=== PATIENT | female | born 1970 | race Caucasian/White ===

== ENCOUNTER 2018-03-29 18:23 | Emergency (ER) | payer MEDICAID ==
[~2018-03-29] VITALS: Ht 172.7 cm; Wt 96.2 kg
[2018-03-29 18:28] VITALS: BP 140/83
[2018-03-29 19:14] LABS: APPEARANCE,URINE HAZY (CLEAR); BASOPHILS # (AUTO) 0.1 K/uL (0.00-0.22); BASOPHILS % (AUTO) 0.5 % (0.0-2.0); BILIRUBIN,URINE NEGATIVE (NEGATIVE); BLOOD, URINE 2+ (NEGATIVE); COLOR,URINE YELLOW (YELLOW); EOSINOPHILS # (AUTO) 0.1 K/uL (0-0.4); EOSINOPHILS % (AUTO) 0.5 % (0.0-4.0); HEMATOCRIT 39.3 % (36-48); HEMOGLOBIN 12.5 g/dL (12.0-16.0); LEUKOCYTE ESTERASE ,URINE NEGATIVE (NEGATIVE); LYMPHOCYTES # (AUTO) 0.9 K/uL (2.5-16.5); LYMPHOCYTES % (AUTO) 7.7 % (20.5-51.1); MEAN CORPUSCULAR HEMOGLOBIN 27 pg (27-31); MEAN CORPUSCULAR HGB CONC 32 g/dL (33-37); MEAN CORPUSCULAR VOLUME 83.2 fL (80-94); MONOCYTES # (AUTO) 0.3 K/uL (0.8-1.0); MONOCYTES % (AUTO) 2.9 % (1.7-9.3); NEUTROPHILS # (AUTO) 10.3 K/uL (1.8-7.7); NEUTROPHILS % (AUTO) 88.4 % (42.2-75.2); NITRITE, URINE NEGATIVE (NEGATIVE); PLATELET COUNT (AUTO) 335 K/uL (140-450); RED BLOOD CELL COUNT(AUTO) 4.73 MIL/uL (4.20-5.40); RED CELL DISTRIBUTION WIDTH 15.7 % (11.6-13.7); UGLUCOSE NEGATIVE (NEGATIVE); WHITE BLOOD COUNT (AUTO) 11.7 K/uL (4.8-10.8)
--- NOTE | 2018-03-29 19:16 | NUR ---
PT TO ER BED 8
[2018-03-29 19:29] LABS: RBC,URINE 3-10 (FEW) /HPF (0-5)
[2018-03-29 19:30] LABS: ALBUMIN 3.3 g/dL (3.4-5.0); ANION GAP 9.1 (8-16); CREATININE 0.6 mg/dL (0.6-1.3); POTASSIUM 4.1 mmol/L (3.5-5.1); TOTAL BILIRUBIN 0.4 mg/dL (0.0-1.0)
--- NOTE | 2018-03-29 19:30 | NUR ---
PT BIB [facility] MEMBER FOR N/V/D AND DIZZYNESS X1 DAY. PT REPORTS WHITE VOMITING AFTER EATING, AND NOT BEING ABLE TO KEEP ANYTHING DOWN. PT REPORTS MILD ABD PAIN THAT OCCURS WITH VOMITING. PT ABD IS SOFT, NON-TENDER, WITH BOWEL SOUNDS ACTIVE X4 QUADRANTS. ER MD TO SEE PT. SIDE RAIL UP X1, HEAD OF BED ELEVATED, BED IN LOWEST POSITION, WILL CONTINUE TO MONITOR. MEDHX: HTN RX: NONE
--- NOTE | 2018-03-29 20:02 | NUR ---
PT RETURN FROM CT
--- NOTE | 2018-03-29 21:11 | NUR ---
PT RESTING IN BED, FAMILY MEMBER AT BEDSIDE. PT DENIES ABD PAIN OR DIZZYNESS AT THIS TIME. SIDE RAIL UP X1, HOB ELEVATED, BED IN LOWEST POSITION. WILL CONTINUE TO MONITOR.
--- NOTE | 2018-03-29 21:47 | NUR ---
PT COMPLAINING OF HEADACHE AT 9/10. PT REPORTS PRESSURE PAIN STARTING AT THE BACK OF HER HEAD AND RADIATES FOREWARD. PT SPEECH CLEAR, FACIAL SYMMETRY INTACT, VSS. SAFETY PRECAUTIONS IN PLACE. ER MD NOTIFIED.
--- NOTE | 2018-03-29 21:51 | NUR ---
Dr. Marquez evaluating patient at bedside.
[2018-03-29] MEDS ORDERED: NACL 0.9% 1,000 ML IV ONE (21:55)
[2018-03-29] MEDS ORDERED: KETOROLAC 30 MG/ML VIAL IVP ONE (21:55)
[2018-03-29] MEDS ORDERED: cefTRIAXone 1,000 MG VIAL ONE (22:12)
[2018-03-30 00:12] VITALS: BP 124/64
--- NOTE | 2018-03-30 00:12 | NUR ---
Patient discharged by Dr Marquez with v/s stable. Written and verbal after care instructions given and explained. Patient alert, oriented and verbalized understanding of instructions. Ambulatory with steady gait. All questions addressed prior to discharge. ID band removed. Patient advised to follow up with PMD. Rx of ciproflaxacin given. Patient educated on indication of medication including possible reaction and side effects. Opportunity to ask questions provided and answered.
== END 2018-03-30 00:12 | disposition home or self-care (01) ==
LOC: MED 18:23
DX: A09 Infectious gastroenteritis and colitis, unspecified (principal); N39.0 Urinary tract infection, site not specified; I10 Essential (primary) hypertension
CPT/HCPCS: 36415; 74176; 80053; 81001; 81025; 83690; 85025; 87086; 96365; 96375; 99284; J0696; J1885; J7030; J7060; 96361

== ENCOUNTER 2018-04-13 14:05 | Emergency (ER) | payer MEDICAID ==
[~2018-04-13] VITALS: Ht 172.7 cm; Wt 96.2 kg
[2018-04-13 14:11] VITALS: BP 154/75
--- NOTE | 2018-04-13 14:23 | NUR ---
BIB WITH C/O LOWER RIGHT AB PAIN X THIS MORNING, -N/V/D, - URINE PAIN, - BLEEDING, LMB TODAY. NO OTHER SYMPTOMS REPORTED AT THIS TIME.
--- NOTE | 2018-04-13 14:55 | NUR ---
PATIENT TAKEN TO US IN WHEELCHAIR
[2018-04-13 15:08] LABS: APPEARANCE,URINE CLEAR (CLEAR); BILIRUBIN,URINE NEGATIVE (NEGATIVE); BLOOD, URINE 2+ (NEGATIVE); COLOR,URINE YELLOW (YELLOW); LEUKOCYTE ESTERASE ,URINE NEGATIVE (NEGATIVE); NITRITE, URINE NEGATIVE (NEGATIVE); UGLUCOSE NEGATIVE (NEGATIVE)
[2018-04-13 15:36] LABS: RBC,URINE 0-5 (RARE) /HPF (0-5); WBC,URINE 0-5 (RARE) /HPF (0-5)
--- NOTE | 2018-04-13 16:05 | NUR ---
PATIENT REQUESTING PAIN MEDICATION. DR LARRY INFORMED.
[2018-04-13] MEDS ORDERED: HYDROcodone/APAP 5/325 MG 1 TAB TAB PO ONE (17:00)
[2018-04-13 17:21] VITALS: BP 154/75
--- NOTE | 2018-04-13 17:21 | NUR ---
Patient discharged with v/s stable. Written and verbal after care instructions given and explained. Patient alert, oriented and verbalized understanding of instructions. Ambulatory with to car. All questions addressed prior to discharge. ID band removed. Patient advised to follow up with PMD. Rx of DOXYCYCLINE, NORCO, KEFLEX given. Patient educated on indication of medication including possible reaction and side effects. Opportunity to ask questions provided and answered.
== END 2018-04-13 17:21 | disposition home or self-care (01) ==
LOC: MED 14:05
DX: N83.201 Unspecified ovarian cyst, right side (principal); E11.9 Type 2 diabetes mellitus without complications; I10 Essential (primary) hypertension
CPT/HCPCS: 76856; 81001; 81025; 99284; Q0092

== ENCOUNTER 2019-09-29 15:02 | Emergency (ER) | payer SELFPAY ==
[~2019-09-29] VITALS: Ht 172.7 cm; Wt 103.0 kg
[2019-09-29 15:09] VITALS: BP 154/44
--- NOTE | 2019-09-29 15:12 | NUR ---
C/O LEFT ANTERIOR LEG PAIN/INFLAMMATION FOR APPROX 32 HOURS. ALSO PAIN TRAVELLING UP WITH A "BALL"/LUMP IN LEFT INGUINAL AREA. VERTICAL AREA OF REDNESS, WARMTH TO LEFT UPPER ANTERIOR LEG. DENIES INJURY. DENIES CP, SOB. VSS HX---DENIES RX--NONE
--- NOTE | 2019-09-29 15:18 | NUR ---
FABIAN LEACH EVALUATING PT AT BEDSIDE
[2019-09-29] MEDS ORDERED: cefTRIAXone 1,000 MG in LIDOCAINE MPF 1% 2.1 ML IM ONE (15:25)
[2019-09-29] MEDS ORDERED: KETOROLAC 30 MG/ML VIAL IM ONE (15:25)
[2019-09-29] MEDS ORDERED: LIDOCAINE MPF 1% 5 ML ONE (15:40)
[2019-09-29] MEDS ORDERED: cefTRIAXone 1,000 MG VIAL ONE (15:40)
--- NOTE | 2019-09-29 15:54 | NUR ---
U/S TECH AT BEDSIDE
[2019-09-29 16:12] LABS: BASOPHILS # (AUTO) 0.1 K/uL (0.00-0.22); BASOPHILS % (AUTO) 0.6 % (0.0-2.0); EOSINOPHILS # (AUTO) 0.1 K/uL (0-0.4); EOSINOPHILS % (AUTO) 1.2 % (0.0-4.0); HEMATOCRIT 35.9 % (36-48); HEMOGLOBIN 11.5 g/dL (12.0-16.0); LYMPHOCYTES # (AUTO) 2.7 K/uL (2.5-16.5); LYMPHOCYTES % (AUTO) 29.8 % (20.5-51.1); MEAN CORPUSCULAR HEMOGLOBIN 27 pg (27-31); MEAN CORPUSCULAR HGB CONC 32 g/dL (33-37); MEAN CORPUSCULAR VOLUME 83.4 fL (80-94); MONOCYTES # (AUTO) 0.6 K/uL (0.8-1.0); NEUTROPHILS # (AUTO) 5.6 K/uL (1.8-7.7); NEUTROPHILS % (AUTO) 61.4 % (42.2-75.2); PLATELET COUNT (AUTO) 299 K/uL (140-450); RED BLOOD CELL COUNT(AUTO) 4.31 MIL/uL (4.20-5.40); RED CELL DISTRIBUTION WIDTH 16.2 % (11.6-13.7); WHITE BLOOD COUNT (AUTO) 9.1 K/uL (4.8-10.8)
[2019-09-29 16:26] LABS: ALBUMIN 3.2 g/dL (3.4-5.0); CARBON DIOXIDE 26.1 mmol/L (21-32); CREATININE 0.7 mg/dL (0.6-1.3); POTASSIUM 4.1 mmol/L (3.5-5.1); TOTAL BILIRUBIN 0.1 mg/dL (0.0-1.0)
--- NOTE | 2019-09-29 16:44 | NUR ---
PT AMB TO RESTROOM STEADY GAIT TO PROVIDE URINE SAMPLE
--- NOTE | 2019-09-29 16:44 | NUR ---
CT DEPT AWARE THAT LABS ARE BACK, 20G IV PLACED, AND CONSENT SIGNED
--- NOTE | 2019-09-29 17:19 | NUR ---
Pt back from CT scan via w/c
[2019-09-29 18:13] VITALS: BP 133/70
--- NOTE | 2019-09-29 18:13 | NUR ---
Patient discharged with v/s stable. Written and verbal after care instructions given and explained. Patient alert, oriented and verbalized understanding of instructions. Ambulatory with steady gait. All questions addressed prior to discharge. ID band removed. Patient advised to follow up with PMD. PT STATES SHE HAS UPCOMING PCP APPOINTMENT. Rx of KEFLEX, IBUPROFEN, AND XARELTO given. Patient educated on indication of medication including possible reaction and side effects. Opportunity to ask questions provided and answered.
== END 2019-09-29 18:13 | disposition home or self-care (01) ==
LOC: MED 15:02
DX: M79.605 Pain in left leg (principal); E11.9 Type 2 diabetes mellitus without complications; I10 Essential (primary) hypertension; Z98.890 Other specified postprocedural states
CPT/HCPCS: 36415; 73701; 80053; 81002; 81025; 85025; 93971; 96372; 99285; J0696; J1885; J2001; Q0092

== ENCOUNTER 2019-10-07 10:23 | Emergency (ER) | payer MEDICAID ==
[~2019-10-07] VITALS: Ht 172.7 cm; Wt 103.0 kg
[2019-10-07 10:33] VITALS: BP 145/87
--- NOTE | 2019-10-07 11:00 | NUR ---
C/O VAGINAL BLEEDING X 2 DAYS & C/O LOWER ABDOMINAL PAIN X LAST NIGHT. DENIES DYSURIA. PATIENT TOOK XARELTO, CEPHALEXIN X 10 DAYS.PT AOX 4 , AFIBRILE , AMBULATORY WITH STEADY GAIT , FLAT SOFT ABDOMEN. MED HX: DM, HTN, VARICOSE VEINS, OVARIAN CYST
--- NOTE | 2019-10-07 11:27 | NUR ---
Pt moved to bed 09
[2019-10-07 12:04] LABS: BASOPHILS % (AUTO) 0.5 % (0.0-2.0); EOSINOPHILS # (AUTO) 0.1 K/uL (0-0.4); EOSINOPHILS % (AUTO) 1.2 % (0.0-4.0); HEMATOCRIT 32.6 % (36-48); HEMOGLOBIN 10.6 g/dL (12.0-16.0); LYMPHOCYTES # (AUTO) 2.8 K/uL (2.5-16.5); LYMPHOCYTES % (AUTO) 30.8 % (20.5-51.1); MEAN CORPUSCULAR HEMOGLOBIN 27 pg (27-31); MEAN CORPUSCULAR HGB CONC 33 g/dL (33-37); MEAN CORPUSCULAR VOLUME 82.6 fL (80-94); MONOCYTES # (AUTO) 0.6 K/uL (0.8-1.0); MONOCYTES % (AUTO) 6.5 % (1.7-9.3); NEUTROPHILS # (AUTO) 5.5 K/uL (1.8-7.7); PLATELET COUNT (AUTO) 321 K/uL (140-450); RED BLOOD CELL COUNT(AUTO) 3.95 MIL/uL (4.20-5.40); RED CELL DISTRIBUTION WIDTH 16.3 % (11.6-13.7)
[2019-10-07 12:37] LABS: PROTHROMBIN TIME 10.6 secs (10.8-13.4)
[2019-10-07 12:50] LABS: POTASSIUM 3.3 mmol/L (3.5-5.1)
[2019-10-07 12:51] LABS: CARBON DIOXIDE 25.3 mmol/L (21-32); CREATININE 0.6 mg/dL (0.6-1.3)
[2019-10-07 14:42] LABS: BASOPHILS # (AUTO) 0.1 K/uL (0.00-0.22); EOSINOPHILS # (AUTO) 0.1 K/uL (0-0.4); HEMOGLOBIN 10.6 g/dL (12.0-16.0); LYMPHOCYTES # (AUTO) 2.7 K/uL (2.5-16.5); LYMPHOCYTES % (AUTO) 31.1 % (20.5-51.1); MEAN CORPUSCULAR HEMOGLOBIN 27 pg (27-31); MEAN CORPUSCULAR HGB CONC 33 g/dL (33-37); MEAN CORPUSCULAR VOLUME 82.7 fL (80-94); MONOCYTES # (AUTO) 0.5 K/uL (0.8-1.0); MONOCYTES % (AUTO) 5.4 % (1.7-9.3); NEUTROPHILS # (AUTO) 5.3 K/uL (1.8-7.7); NEUTROPHILS % (AUTO) 61.5 % (42.2-75.2); PLATELET COUNT (AUTO) 311 K/uL (140-450); RED BLOOD CELL COUNT(AUTO) 3.87 MIL/uL (4.20-5.40); RED CELL DISTRIBUTION WIDTH 16.4 % (11.6-13.7); WHITE BLOOD COUNT (AUTO) 8.7 K/uL (4.8-10.8)
--- NOTE | 2019-10-07 14:53 | NUR ---
PT IS RESTING IN THE BED AND ON THE MONITOR. WILL CONTINUE MONITORING PT'S VITAL SIGNS.
[2019-10-07 15:05] VITALS: BP 115/59
--- NOTE | 2019-10-07 15:05 | NUR ---
Patient discharged with v/s stable. Written and verbal after care instructions given and explained. Patient verbalized understanding. Ambulatory with steady gait. All questions addressed prior to discharge. Advised to follow up with OBGYN/PCP.
== END 2019-10-07 15:05 | disposition home or self-care (01) ==
LOC: MED 10:23
DX: N93.9 Abnormal uterine and vaginal bleeding, unspecified (principal); D64.9 Anemia, unspecified; I10 Essential (primary) hypertension
CPT/HCPCS: 36415; 80048; 81002; 81025; 84702; 85025; 85610; 85730; 86886; 86900; 86901; 99283

== ENCOUNTER 2020-03-18 06:05 | Emergency (ER) | payer SELFPAY ==
[~2020-03-18] VITALS: Ht 175.3 cm; Wt 103.0 kg
[2020-03-18 06:07] VITALS: BP 170/80
--- NOTE | 2020-03-18 06:08 | NUR ---
TO BED #08 AMBULATORY
--- NOTE | 2020-03-18 06:10 | NUR ---
PATIENT PRESENTS TO ED WITH C/O SUPRAPUBIC PAIN, GREATER ON THE LEFT, AND PAINFUL URINATION. DENIES N/V/D; SKIN IS PINK/WARM/DRY; AAOX4 WITH EVEN AND STEADY GAIT; LUNGS CLEAR BL; HR EVEN AND REGULAR; PATIENT STATES PAIN OF 0/10 AT THIS TIME; VSS; PATIENT POSITIONED FOR COMFORT; HOB ELEVATED; BEDRAILS UP X2; BED DOWN. ER MD MADE AWARE OF PT STATUS.
[2020-03-18 07:10] LABS: BASOPHILS % (AUTO) 0.5 % (0.0-2.0); EOSINOPHILS % (AUTO) 0.3 % (0.0-4.0); HEMATOCRIT 37.6 % (36-48); HEMOGLOBIN 12.4 g/dL (12.0-16.0); LYMPHOCYTES # (AUTO) 1.5 K/uL (2.5-16.5); LYMPHOCYTES % (AUTO) 18.1 % (20.5-51.1); MEAN CORPUSCULAR HEMOGLOBIN 27 pg (27-31); MEAN CORPUSCULAR HGB CONC 33 g/dL (33-37); MEAN CORPUSCULAR VOLUME 81.6 fL (80-94); MONOCYTES # (AUTO) 0.3 K/uL (0.8-1.0); MONOCYTES % (AUTO) 3.4 % (1.7-9.3); NEUTROPHILS # (AUTO) 6.3 K/uL (1.8-7.7); NEUTROPHILS % (AUTO) 77.7 % (42.2-75.2); PLATELET COUNT (AUTO) 313 K/uL (140-450); RED CELL DISTRIBUTION WIDTH 19.2 % (11.6-13.7); WHITE BLOOD COUNT (AUTO) 8.1 K/uL (4.8-10.8)
--- NOTE | 2020-03-18 07:51 | NUR ---
Patient discharged with v/s stable. Written and verbal after care instructions given and explained. Patient alert, oriented and verbalized understanding of instructions. Ambulatory with steady gait. All questions addressed prior to discharge. ID band removed, NO IV ACCESS THIS VISIT. Patient advised to follow up with PMD. Rx of BACTRIM given. Patient educated on indication of medication including possible reaction and side effects. Opportunity to ask questions provided and answered. PT IN AGREEMENT WITH PLAN OF CARE.
[2020-03-18 08:13] LABS: ALBUMIN 3.8 g/dL (3.4-5.0); ANION GAP 14.3 (8-16); CARBON DIOXIDE 22.7 mmol/L (21-32); CREATININE 0.7 mg/dL (0.6-1.3); TOTAL BILIRUBIN 0.2 mg/dL (0.0-1.0)
[2020-03-18 18:14] LABS: APPEARANCE,URINE CLEAR (CLEAR); BILIRUBIN,URINE NEGATIVE (NEGATIVE); BLOOD, URINE 3+ (NEGATIVE); COLOR,URINE YELLOW (YELLOW); LEUKOCYTE ESTERASE ,URINE NEGATIVE (NEGATIVE); NITRITE, URINE NEGATIVE (NEGATIVE); UGLUCOSE TRACE (NEGATIVE)
[2020-03-18 20:36] LABS: RBC,URINE 11-20 (MOD) /HPF (0-5); WBC,URINE 0-5 /HPF (0-5)
== END 2020-03-18 07:51 | disposition home or self-care (01) ==
LOC: MED 06:05
DX: R10.30 Lower abdominal pain, unspecified (principal); R31.9 Hematuria, unspecified; R35.0 Frequency of micturition; I10 Essential (primary) hypertension; D64.9 Anemia, unspecified; Z98.890 Other specified postprocedural states
CPT/HCPCS: 36415; 80053; 81001; 81025; 83690; 85025; 87086; 99283

== ENCOUNTER 2021-08-03 14:50 | Emergency (ER) | payer MEDICAID ==
[~2021-08-03] VITALS: Ht 170.2 cm; Wt 99.3 kg
[2021-08-03 14:59] VITALS: BP 156/90
--- NOTE | 2021-08-03 15:21 | NUR ---
50 Y/O FEMALE WITH C/O LEG PAIN. PATIENT HAS LEFT LEG SWELLING ALSO. 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 PATIENT WAS REFERED BY PCP TO RULE OUT DVT TO LEG. MEDICAL HISTORY: DVT 2 YEARS AGO NKDA
--- NOTE | 2021-08-03 15:33 | NUR ---
DR. HERNANDEZ EVALUATING PATIENT AT BEDSIDE.
[2021-08-03 16:21] LABS: BASOPHILS # (AUTO) 0.1 K/uL (0.00-0.22); BASOPHILS % (AUTO) 1.1 % (0.0-2.0); EOSINOPHILS # (AUTO) 0.1 K/uL (0-0.4); EOSINOPHILS % (AUTO) 0.6 % (0.0-4.0); HEMATOCRIT 38.6 % (36-48); HEMOGLOBIN 12.5 g/dL (12.0-16.0); LYMPHOCYTES # (AUTO) 2.5 K/uL (2.5-16.5); LYMPHOCYTES % (AUTO) 20.7 % (20.5-51.1); MEAN CORPUSCULAR HEMOGLOBIN 27 pg (27-31); MEAN CORPUSCULAR HGB CONC 33 g/dL (33-37); MEAN CORPUSCULAR VOLUME 83.8 fL (80-94); MONOCYTES # (AUTO) 0.7 K/uL (0.8-1.0); MONOCYTES % (AUTO) 5.6 % (1.7-9.3); NEUTROPHILS # (AUTO) 8.6 K/uL (1.8-7.7); PLATELET COUNT (AUTO) 369 K/uL (140-450); RED CELL DISTRIBUTION WIDTH 15.1 % (11.6-13.7); WHITE BLOOD COUNT (AUTO) 11.9 K/uL (4.8-10.8)
[2021-08-03 16:42] LABS: ANION GAP 10.2 (8-16); CARBON DIOXIDE 26.7 mmol/L (21-32); CHLORIDE 105 mmol/L (98-107); CREATININE 0.8 mg/dL (0.6-1.3); GFR ARICAN-AMERICAN 98 mL/min (>90); GLUCOSE 126 mg/dL (74-106); POTASSIUM 3.9 mmol/L (3.5-5.1); SODIUM SERUM 138 mmol/L (136-145); UREA NITROGEN, BLOOD 18 mg/dL (7-18)
--- NOTE | 2021-08-03 16:46 | NUR ---
ULTRASOUND AT BEDSIDE.
[2021-08-03 16:54] LABS: ALBUMIN 3.2 g/dL (3.4-5.0); ASPARTATE AMINOTRANSFERASE 13 U/L (15-37); TOTAL BILIRUBIN 0.1 mg/dL (0.0-1.0)
[2021-08-03 17:20] VITALS: BP 164/77
[2021-08-03] MEDS ORDERED: ACET-10509 PO (17:59)
--- NOTE | 2021-08-03 18:17 | NUR ---
Patient discharged with v/s stable. Written and verbal after care instructions given. Patient alert, oriented and verbalized understanding of instructions. Ambulatory with steady gait. All questions addressed prior to discharge. ID band removed. Patient advised to follow up with PMD. Rx of ACETAMINOPHEN given. Opportunity to ask questions provided and answered.
--- NOTE | 2021-08-03 18:18 | NUR ---
Chart checked and completed. The patient's care was reviewed and supervised by Kyara Hewitt RN.
== END 2021-08-03 18:17 | disposition home or self-care (01) ==
LOC: MED 14:50
DX: M79.662 Pain in left lower leg (principal); E11.9 Type 2 diabetes mellitus without complications; I10 Essential (primary) hypertension; Z79.4 Long term (current) use of insulin; Z86.718 Personal history of other venous thrombosis and embolism
CPT/HCPCS: 36415; 80053; 84484; 85025; 85379; 93971; 99284; Q0092